=== PATIENT | male | born 1980 | race Caucasian/White ===

== ENCOUNTER → 2023-04-09 14:31 | Outpatient (BNVA) | payer OTHER, SELFPAY | PROVIDERS: PCP Family Medicine; Referring Provider Family Medicine; Visit Provider Surgery ==

== ENCOUNTER 2023-04-09 14:33 | Outpatient (AMB) | payer OTHER, SELFPAY ==
--- NOTE | 2023-04-09 14:44 | MHC.OFFVIS ---
Intake Vital Signs 04/09/23 14:49 Height 5 ft 8 in Weight 150 lb 4 oz BMI 22.8 BP 121/68 Blood Pressure Location Lt brachial Position Sitting Pulse 52 Intake Visit Reasons: Chronic Anal Fissure Intake Note: Patient is seen in office for evalution and treatment of a chronic anal fissure. Patient c/o: onset for many years, had external fissure in the past, bleeding with bm, chronic issue, pain, heals and then comes back, was prescribe a cream with no relief, had a recent colonoscopy and made it worse, has a hemorrhoidectomy coming up at [facility] and is scheduled for a repeat colonoscopy due to polyps. Denies nausea, vomit, diarrhea, or other concerns Inspecting Supervisor Required: No Accompanied by: Self / Same As Patient Allergies lamotrigine [From Lamictal] Allergy (Mild, Verified 04/09/23 14:47) Rash Medication List - Last Reconciled 04/09/23 by Keo Cherry MD levetiracetam 0 mg PO HPI HPI Comments History of Present Illness Details 42-year-old male patient presenting for evaluation of a chronic anal fissure. He reports the symptoms began approximately 20 years ago and is associated with intermittent episodes of rectal pain and bleeding especially after having a large bowel movement. He has been treating with fiber therapy and stool softeners without significant improvement. He occasionally will have a large bulky stool which will cause increased pain and bleeding. He reports bleeding on 95% of his bowel movements usually a small amount noted on the toilet paper. He recently underwent a colonoscopy at [facility] and a polyp was removed. He is scheduled for a repeat colonoscopy and hemorrhoid banding in the near future. Denies a history of Crohn's disease or ulcerative colitis. He does occasionally have abdominal bloating and is now on a gluten free vegan diet. He has tried nitroglycerin topical treatments as well as hydrocortisone cream. The nitroglycerin did help but subsequently the fissure returned. He is looking for advice regarding other options. [facility] Surgical History H/O brain surgery (08/10/11) History of colonoscopy Family History Father Malignant melanoma Mother Glioblastoma multiforme of brain Social History Alcohol intake: current Alcohol intake frequency: holidays/special occasions only Patient Tobacco Use Status: Never used Tobacco Review of Systems Const All systems reviewed & are unremarkable except as noted in HPI and below GI Reports hematochezia Physical Exam Vital Signs: Last Vital Signs Pulse 52 04/09/23 14:49 BP 121/68 04/09/23 14:49 BMI result Body Mass Index 22.8 Const General: healthy appearing and comfortable Nutritional Appearance: well nourished Orientation/consciousness: patient oriented x3 Limitations: no limitations HEENT Head: Yes normocephalic and Yes atraumatic Ears: hearing grossly normal bilaterally Resp Effort & Inspection: normal respiratory effort, no audible wheezes, no cough and no respiratory distress GI Other: Rectal examination: External examination reveals a sentinel pile in the anterior anal wall. A small skin tears noted externally in the posterior wall but no puritis ani appreciated. Digital examination with small finger revealed extremely tight internal anal sphincter muscles. A palpable cord is noted in the posterior wall with tenderness suggestive of a anal fissure. Anal fissure also evident in the anterior anal wall. Anoscopic examination not attempted due to anal canal tenderness. Inspection: Yes normal to inspection Palpation (GI): Soft to palpation, nontender and no guarding Skin Other: Warm, dry, no rash Neuro General: patient oriented x3 Extrem Other: No edema Assessment & Plan Assessment & Plan (1) Chronic anal fissure: Code(s): K60.1 - Chronic anal fissure Plan 42-year-old male patient with a long history of anal fissures found on examination to have both an anterior and posterior wall anal fissure with an extremely tight internal anal sphincter. Patient has had some success using nitroglycerin however symptoms return. He is unlikely to have been further benefit with hydrocortisone cream. We discussed lateral internal sphincterotomy as a possible option. I recommended he continue with the stool softeners and fiber therapy. He is due to undergo a repeat colonoscopy banding of the hemorrhoid with his color adviser. He is considering scheduling the lateral internal sphincterotomy following these procedures and will call the office to this make arrangements. I reviewed the procedure, risks, and alternatives and he consents to the lateral internal sphincterotomy. Coding Level of Care Code New Pt Level 4 (21272) Diagnoses Chronic anal fissure K60.1
[2023-04-09 14:49] VITALS: BP 121/68; PULSE 52; BMI 22.8
== END 2023-04-09 15:07 | disposition home or self-care (01) ==
PROVIDERS: PCP Family Medicine; Referring Provider Family Medicine; Visit Provider Surgery
DX: K60.1 Chronic anal fissure (principal)
CPT/HCPCS: 99204